=== PATIENT | female | born 1955 | race Caucasian/White ===

== ENCOUNTER → 2023-06-20 08:47 | Outpatient (REF) | payer OTHER, SELFPAY | LOC: HWRAD 08:47 | PROVIDERS: ATTENDING PHYSICIAN Obstetrics & Gynecology; FAMILY PHYSICIAN Family Medicine | DX: Z78.0 Asymptomatic menopausal state (principal) | CPT/HCPCS: 77080 ==

== ENCOUNTER → 2023-07-05 14:41 | Outpatient (REF) | payer OTHER, SELFPAY | LOC: MRI 3T 14:41 | PROVIDERS: ATTENDING PHYSICIAN Pain Medicine Interventional Pain Medicine; FAMILY PHYSICIAN Family Medicine | DX: M54.16 Radiculopathy, lumbar region (principal) | CPT/HCPCS: 72148 ==

== ENCOUNTER → 2023-10-02 09:07 | Outpatient (REF) | payer OTHER, SELFPAY | LOC: HWRAD 09:07 | PROVIDERS: ATTENDING PHYSICIAN Surgery; FAMILY PHYSICIAN Family Medicine; REFERRING PHYSICIAN Physician Assistant Medical | DX: K82.4 Cholesterolosis of gallbladder (principal) | CPT/HCPCS: 76700 ==

== ENCOUNTER → 2023-10-03 12:10 | Outpatient (REF) | payer OTHER, SELFPAY | LOC: WDC 12:10 | PROVIDERS: ATTENDING PHYSICIAN Obstetrics & Gynecology; FAMILY PHYSICIAN Family Medicine | DX: Z12.31 Encounter for screening mammogram for malignant neoplasm of breast (principal) | CPT/HCPCS: 77063; 77067 ==

== ENCOUNTER 2023-10-21 09:13 | Emergency (ER) | payer OTHER, SELFPAY ==
[2023-10-21 09:16] VITALS: BP 198/100
[2023-10-21 10:07] VITALS: BP 168/79
--- NOTE | 2023-10-21 10:15 | ED.GENMED ---
History of Present Illness
General
Chief Complaint: Chest Pain
Source: patient
Exam Limitations: none
Time Seen by Provider: 10/21/23 10:15
Nursing documentation reviewed up to this point in time: agreed with
History of Present Illness
History of Present Illness:
68-year-old female with history of GERD, hiatal hernia presents stating she has had intermittent left upper chest pains past few weeks. Here today because she is scheduled for cholecystectomy with Dr. Mercado on 11/02. Had pre op labs done here
yesterday. States CP is there 'a little' now. Denies n/v/d/c. Denies SOB, abdominal pain. Denies feeling weak or lightheaded. Relaxation and Tylenol help the pain. She has been doing P/T past 6 weeks for her back pain and has been doing alternating
arm lift exercises she states may have something to do with the pain.
Past History
Past History
ED Past Medical History: GERD (HH), HTN and Psychiatric (anxiety)
ED Past Surgical History: Orthopedic and Tonsilectomy
Social History
Tobacco: Non-smoker
Personal:
Living: with family
Review of Systems
Review of Systems
Allergies reviewed?: Yes
All Other Systems: ROS reviewed and negative except as documented in HPI and ROS
Constitutional: Denies fever or fatigue
Respiratory: Denies trouble breathing
Cardiac: Reports chest pain; Denies diaphoresis, palpitations or syncope
ABD/GI: Denies abdominal pain, nausea or diarrhea
: Denies dysuria or difficulty voiding
Musculoskeletal: Reports no symptoms
Skin: Reports no symptoms
Neurological: Reports no symptoms
Phy Exam
Physical Exam
Physical Exam:
GENERAL: No acute distress. A&Ox3.
CONSTITUTIONAL: Afebrile.
EYES: clear, conjunctivae normal
ENMT: moist mucus membranes, Pharynx nl
RESPIRATORY: Regular respirations, nonlabored, lungs clear.
CARDIOVASCULAR: Regular rate and rhythm, no murmurs, no rubs.
GI: Soft, nontender, normal BS
MUSCULOSKELETAL: Moves with ease. Well perfused.
SKIN: Warm, dry, pink
PSYCH: Normal mood and affect. Well kept, interactive and appropriate
NEUROLOGIC: Awake, alert and oriented. No focal neurological deficits
Scores
Heart Score for Chest Pain Patients
STEMI patient?: Not applicable
Course
Orders/Labs/Results
Orders:
Orders
10/21/23 09:20
Electrocardiogram (*1) Urgent
Reason for Study: Chest Pain
EKG- Treatment ONCE
10/21/23 10:26
CR Chest - 2 Views Urgent
Comment:
Reason For Exam: Chest pain
10/21/23 10:30
Troponin I Urgent
Vital Signs
Initial and Last Documented VS:
Initial Vital Signs
Temp Pulse Resp BP Pulse Ox
98.0 F 98 16 198/100 99
10/21/23 09:16 10/21/23 09:16 10/21/23 09:16 10/21/23 09:16 10/21/23 09:16
Last Documented Vital Signs
Temp Pulse Resp BP Pulse Ox
98.0 F 70 14 168/79 97
10/21/23 09:16 10/21/23 11:15 10/21/23 11:15 10/21/23 10:07 10/21/23 11:15
MDM/Problems Addressed
Differential Diagnosis Includes:
ACS, GERD, musculoskeletal
MDM/Problems Addressed:
68-year-old female with history of GERD, hiatal hernia presents stating she has had intermittent left upper chest pains past few weeks. Here today because she is scheduled for cholecystectomy with Dr. Mercado on 11/02. Had pre op labs done here
yesterday. States CP is there 'a little' now. Denies n/v/d/c. Denies SOB, abdominal pain. Denies feeling weak or lightheaded. Relaxation and Tylenol help the pain. She has been doing P/T past 6 weeks for her back pain and has been doing alternating
arm lift exercises she states may have something to do with the pain.
CBC, CMP from yesterday are unremarkable, no need to repeat.
11:30 AM
Chest x-ray: NAD
Troponin WNL
Patient consistently monitored throughout her stay, heart rate on the monitor when no one is in the room or engaging her is in the 60s to 70s consistently.
Patient and concerned because they saw EKG she had done yesterday and the changes they saw today which include tachycardia, reassured that differences in today's EKG were due to rate variability. Nothing worrisome.
Discussed with Dr. Jiménez who agrees. Pt reassured.
Lengthy discussion with patient and , she has been extremely stressed with family situations recently and attributes this to some of her chest pains. She is interested in getting medication for anxiety and will discuss this with her PCP with
whom she has an appointment next week.
She also states this could be her GERD and is requesting a prescription and acid so Protonix prescription was sent to her pharmacy. She will let her PCP know if it helps
Stable for discharge.
*Critical Care Note
Total Time (30-74mins, 75-104mins- exclusive of procedures): Not Applicable
ED Attending Note
-
Portions of this chart may have been created with voice recognition software.� Occasional wrong word or��sound alike� substitutions may have occurred due to the inherent limitations of voice recognition software.
Discharge Plan
Departure
Patient Disposition: Home (Routine Discharge)
Date of Disposition: 10/21/23
Time of Disposition: 11:45
Patient with high blood pressure during this ER visit?: No
Condition: Good
Discharge Problem:
Atypical chest pain, Anxiety, Gastroesophageal reflux disease
Instructions: Chest Pain That Is Not Caused by the Heart (DC), Acid Reflux and GERD in Adults (DC), Anxiety, Adult ED
Prescriptions:
New
pantoprazole [Protonix] 40 mg tablet,delayed release (DR/EC)
40 mg PO DAILY Qty: 30 0RF
No Action
acetaminophen 325 MG tablet
650 mg PO Q4HPRN PRN (Reason: pain)
famotidine 20 MG tablet
10 - 20 mg PO BIDPRN PRN (Reason: stomach upset)
calcium carbonate [Oyster Shell Calcium 500] 500 MG tablet
500 mg PO DAILY
cholecalciferol (vitamin D3) 1,000 UNITS tablet
1,000 units PO DAILY
multivitamin with folic acid [Tab-A-Amanda] 1 TABLET tablet
1 tab PO DAILY
polyethylene glycol 3350 17 GRAMS powder in packet
17 grams PO DAILY PRN (Reason: constipation)
sucralfate 1 GM/10 ML suspension
1 gm PO QID Qty: 400 0RF
Referrals:
Rose Anne DO [Family Provider] -
Activity Restrictions/Additional Instructions:
As we discussed, Your workup here today shows nothing worrisome, specifically no sign of a heart attack.
I sent a prescription to your pharmacy for Protonix to take it daily and let your primary doctor or your GI doctor now if it helps.
Talk to your doctor about your anxiety and ask about medication
Interventions
Interventions:
*Risk Screen - Suicide Last Done: 10/21/23 10:15
*General Assessment Last Done: 10/21/23 09:16
*Neglect/Abuse Screening Last Done: 10/21/23 10:15
ED- Fall Risk Assessment Last Done: 10/21/23 12:51
*ED COVID-19 Vaccine History Last Done: 10/21/23 09:16
*Nursing Disposition Last Done: 10/21/23 12:51
ED- Cardiac Assessment Last Done: 10/21/23 10:15
Discharge Date and Time
Discharge Date/Time: 10/21/23 12:52
Print Language: LAO
[2023-10-21 10:59] LABS: Troponin I < 0.012 ng/ml
== END 2023-10-21 12:52 | disposition home or self-care (01) ==
LOC: EMR 09:13
PROVIDERS: Registered Nurse; EMERGENCY PHYSICIAN Emergency Medicine; FAMILY PHYSICIAN Family Medicine
DX: R07.89 Other chest pain (principal); M54.9 Dorsalgia, unspecified; K21.9 Gastro-esophageal reflux disease without esophagitis; I10 Essential (primary) hypertension; F41.9 Anxiety disorder, unspecified; K44.9 Diaphragmatic hernia without obstruction or gangrene; Z88.2 Allergy status to sulfonamides; Z88.8 Allergy status to other drugs, medicaments and biological substances
CPT/HCPCS: 99284; 71046; 84484; 93005

== ENCOUNTER → 2023-10-27 10:52 | Outpatient (REF) | payer OTHER, SELFPAY | LOC: WDC 10:52 | PROVIDERS: ATTENDING PHYSICIAN Obstetrics & Gynecology; FAMILY PHYSICIAN Family Medicine | DX: R92.2 Inconclusive mammogram (principal) | CPT/HCPCS: 76641 ==

== ENCOUNTER 2023-11-03 07:30 | Day surgery (SDC) | payer OTHER, SELFPAY ==
[2023-10-20 09:16] LABS: Hematocrit 42.6 % (37.0-47.0); Hemoglobin 13.9 g/dL (12.0-16.0); Mean Corp Hgb Conc. 32.6 g/dL (33.0-37.0); Mean Corpuscular Hgb 28.9 pg (27.0-31.0); Mean Corpuscular Volume 88.6 fL (81.0-99.0); Mean Platelet Volume 10.9 fL (7.4-10.4); Platelet Count 214 10^3/uL (130-400); Red Blood Cell Count 4.81 10^6/uL (4.20-5.40); Red Cell Dist. Width 12.4 % (11.5-14.5); White Blood Cell Count 7.7 10^3/uL (4.8-10.8)
[2023-10-20 09:59] VITALS: BMI 24.5
[2023-10-20 10:42] LABS: ALT (SGPT) 27 U/L (0-35); AST (SGOT) 31 U/L (14-36); Albumin 4.8 g/dl (3.5-5.0); Alkaline Phosphatase 72 U/L (38-126); Blood Urea Nitrogen 13 mg/dl (7-17); Calcium 9.7 mg/dl (8.4-10.2); Carbon Dioxide 29 mmol/L (22-30); Chloride 104 mmol/L (98-107); Estimated Creatinine Clearance 76 ml/min; Glucose 83 mg/dl (70-99); Sodium 140 mmol/L (135-145); Total Bilirubin 0.5 mg/dl (0.2-1.3); Total Protein 7.1 g/dl (6.3-8.2); eGFR > 60.00
[2023-11-03] VITALS (14 sets, daily range): BP systolic 115–152; BP diastolic 49–77; BMI 24.5
[2023-11-03] MEDS: TYLENOL 1000 MG PO (08:42)
[2023-11-03] MEDS: NORMOSOL-R 1000 IV (08:43)
--- NOTE | 2023-11-03 10:06 | W.SUR.PREOP ---
Pre-Operative Surgical Note
-
I have examined this patient prior to the performance of the scheduled procedure.
The patient's condition is unchanged from the time of the current History and
Physical and the patient is able to undergo the scheduled procedure.
--- NOTE | 2023-11-03 11:39 | W.IMMPOSTOP ---
Addendum entered and electronically signed by Peewee Mercado MD 11/03/23 11:51:
The assistance of Rhea Shen PA-C was required due to the complexity of the procedure. During the procedure Rhea Shen PA-C assisted with port placement, laparoscopic camera maneuvering, retraction of the gallbladder fundus, and assistance with
closure of the surgical incision sites. I was present for the entirety of the operative procedure.
#[id number]
Original Note:
Surgical Immed Post Op Note
-
Primary Surgeon: Rogelio
Assisting Surgeon: Rhea Shen PA-c
Pre-op Diagnosis: Symptomatic Cholelithiasis, GB polyps
Post-op Diagnosis: same
Procedure Performed: Laparoscopic cholecystectomy
Anesthesia Type: GETA +0.25% Marcaine
Specimen / Cultures: Gallbladder
Estimated Blood Loss: 6 mL
Complications: None immediate
Operative Findings: Physiologically distended gallbladder with few filmy periduodenal adhesions. Anterior and posterior cystic artery was isolated and controlled with hemoclips. Intraoperative cholangiogram attempted however unable to pass
cholangiocatheter through cystic duct valves to secure for cholangiography so cholangiogram was abandoned. Cystic duct controlled proximally with 3 clips. Gallbladder otherwise removed off liver bed intact and extracted at epigastric 12 mm trocar
site. No additional operative findings noted.
[2023-11-03] MEDS: ZOFRAN 4 MG IV (12:02)
[2023-11-03] MEDS: DILAUDID 0.25 MG IV ×2 (12:29→12:55)
== END 2023-11-03 15:45 | disposition home or self-care (01) ==
LOC: SDS 07:30
PROVIDERS: ATTENDING PHYSICIAN Surgery; FAMILY PHYSICIAN Family Medicine; OTHER PHYSICIAN Physician Assistant Medical
DX: K80.10 Calculus of gallbladder with chronic cholecystitis without obstruction (principal); K82.4 Cholesterolosis of gallbladder
CPT/HCPCS: 47562; 88304; 36415; 80053; 85027; 93005

== ENCOUNTER → 2023-12-21 13:44 | Outpatient (REF) | payer OTHER, SELFPAY | LOC: HWRAD 13:44 | PROVIDERS: ATTENDING PHYSICIAN Otolaryngology; FAMILY PHYSICIAN Family Medicine | DX: E04.2 Nontoxic multinodular goiter (principal) | CPT/HCPCS: 76536 ==

== ENCOUNTER → 2024-10-03 11:46 | Outpatient (REF) | payer OTHER, SELFPAY | LOC: WDC 11:46 | PROVIDERS: ATTENDING PHYSICIAN Obstetrics & Gynecology; FAMILY PHYSICIAN Family Medicine | DX: Z12.31 Encounter for screening mammogram for malignant neoplasm of breast (principal) | CPT/HCPCS: 77063; 77067 ==

== ENCOUNTER → 2024-10-25 07:38 | Outpatient (REF) | payer OTHER, SELFPAY | LOC: WDC 07:38 | PROVIDERS: ATTENDING PHYSICIAN Obstetrics & Gynecology; FAMILY PHYSICIAN Family Medicine | DX: R92.2 Inconclusive mammogram (principal) | CPT/HCPCS: 76641 ==